=== PATIENT | male | born 1960 | race Caucasian/White ===

== ENCOUNTER 2023-05-22 00:17 | Emergency (ER) | payer MEDICAID ==
[~2023-05-22 00:17] MED LIST: ALBU8HFA PO; ASPI-4 PO; ATOR10TA70 PO; CHLO-188 PO; DIVA500T9 PO; DULO-31 PO; FLO0.4C PO; GABA-532 PO; HYDR-4353 PO; MELATONIN SL; METO50TA17 PO; MULT-1085 PO; TERB250T89 PO
== END 2023-05-22 01:26 | disposition left against medical advice (07) ==
LOC: ER 00:18
DX: H92.09 Otalgia, unspecified ear (principal); Z53.21 Procedure and treatment not carried out due to patient leaving prior to being seen by health care provider

== ENCOUNTER 2024-01-11 15:46 | Emergency (ER) | payer MEDICAID ==
[~2024-01-11] VITALS: Ht 167.6 cm; Wt 95.0 kg
[2024-01-11 15:49] VITALS: BP 150/93; PULSE 79; RESP 17; TEMP 97; O2SAT 95
[2024-01-11] MEDS: TETanus/Pertussis (Acell)/Diphther VAC/PF (Tdap-Adult) 0.5ml syringe IMVAC ONE (16:30)
== END 2024-01-11 16:43 | disposition home or self-care (01) ==
LOC: ER 15:47
DX: S51.812A Laceration without foreign body of left forearm, initial encounter (principal); G43.909 Migraine, unspecified, not intractable, without status migrainosus; G89.29 Other chronic pain; M79.7 Fibromyalgia; Z88.5 Allergy status to narcotic agent; Z91.018 Allergy to other foods; Z79.899 Other long term (current) drug therapy; Z79.2 Long term (current) use of antibiotics; Z79.82 Long term (current) use of aspirin; W45.8XXA Other foreign body or object entering through skin, initial encounter; Y93.89 Activity, other specified; Y92.89 Other specified places as the place of occurrence of the external cause; Y99.8 Other external cause status
CPT/HCPCS: 90471; 90715; 99283; A6258; A6449